=== PATIENT | female | born 1990 | race Caucasian/White ===

== ENCOUNTER → 2020-05-25 | Outpatient (CLI) | payer OTHER ==
[~2020-05-25] MED LIST: BROMPHED DM PO; FLONASE 0.05% N16 GM; IRON325 M1 PO; LEVOTHYROXINE25 MCG PO; LODINE CAP 300300 MG PO; NORCO 5-325 TA1 EACH PO; PROVERA10 MG PO; ZOFRAN4 MG PO
== END ==
LOC: RAD 20:40
DX: M99.03 Segmental and somatic dysfunction of lumbar region (principal); M54.5 Low back pain; M47.816 Spondylosis without myelopathy or radiculopathy, lumbar region

== ENCOUNTER → 2020-08-04 | Outpatient (CLI) | payer OTHER ==
[2020-08-04 09:47] LABS: HEMOGLOBIN 12.4 gm/dl (12.3-15.3); RED BLOOD COUNT 4.83 M/UL (4.00-5.10); WHITE BLOOD COUNT 10.4 K/UL (4.5-11.0)
[2020-08-04 10:08] LABS: BUN/CREATININE RATIO 14 (0-10)
== END ==
LOC: LAB 09:08
PROVIDERS: Physician Assistant
DX: M25.572 Pain in left ankle and joints of left foot (principal); E03.9 Hypothyroidism, unspecified; D64.9 Anemia, unspecified; E66.01 Morbid (severe) obesity due to excess calories
CPT/HCPCS: 36415; 73610; 80053; 80061; 82728; 83540; 83550; 84439; 84443; 85025